=== PATIENT | female | born 1985 | race African-American/Black ===

== ENCOUNTER 2016-10-21 09:32 | Emergency (ER) | payer BC, OTHER ==
--- NOTE | ~2016-10-21 | CT71 ---
[facility] A Service of [facility] RADIOLOGY TEXT RESULTS PATIENT: MANE JOE LOCATION: [facility] : 89 UNIT #: [id number] AGE: [address]: Miriam Bolaños SEX: F ORDER DR: [id number] [facility] [address] [place], [place] [address] [id number] E MR#: [id number] Acc #: [id number] NAME: MANE JOE. : 1985 SEX: F STUDY DATE/TIME: 10/21/2016 10:23 UNIT: [facility] ROOM: STUDY DESCRIPTION: CT Head Wo Contrast Attending Physician: Miriam Bolaños P.A.-C. Ordering Physician: Miriam Bolaños P.A.-C. Primary Care Physician: No Primary Care Physician MEDICAL IMAGING REPORT This report is preliminary unless electronic signature is present EXAM CT head INDICATIONS Headache for 6 days. Diffuse head pain. Hypertension. TECHNIQUE CT head without contrast. This CT exam was performed with one or more of the following radiation dose reduction techniques: automatic control, adjustment of mA and/or kV according to patient size, and iterative reconstruction. COMPARISON CT head 04/18/2012. FINDINGS Axial noncontrast images were obtained from the skull base to the vertex. Ventricular size and configuration are normal. There is no evidence of acute infarct or hemorrhage. There are no extra-axial fluid collections. No mass lesion or mass effect is seen. There are no skull fractures. IMPRESSION Normal noncontrast head CT. Dictated by... Kyree Mills M.D. THIS IS AN ELECTRONICALLY VERIFIED REPORT Kyree Mills M.D. at 10/22/2016 10:42 AM BERYL/stan TD: 10/22/2016 01:28 [facility] A Service of [facility] RADIOLOGY TEXT RESULTS PATIENT: MANE JOE LOCATION: [facility] : 89 UNIT #: [id number] AGE: [address]: Miriam Bolaños SEX: F ORDER DR: JOB #: [id number] MEDICAL IMAGING REPORT Page 1 of 1 COPY
[~2016-10-21 09:32] MED LIST: ALBUTEROL17 GM INH; AMBIEN PO; ANTI-FUNGAL15 GM TP; ARIXTRA2.5 MG/0.1 SQ; BACTRIM DS TABL1 TA1 PO; BACTROBAN15 GM TOP; DECADRON PO; FAMOTIDINE PO; FLUCONAZOLE100 MG PO; KEFLEX PO; NORCO 5/325 TAB1 TAB PO; PAIN RELIEF325 M1 PO; PREDNISONE PO; PREDNISONE10 MG/DOSE PO; TYLENOL325 M1 PO; VANCOMYCIN; VIBRAMYCIN100 M1 PO; VICODIN 5/500 T1 TAB PO; ZOFRAN PO
[2016-10-21 10:48] LABS: BASOPHIL% 0.8 % (0-2.5); EOSINOPHIL# 0.3 X10e3 (0-0.7); EOSINOPHIL% 4.7 % (0.0-7.0); HEMATOCRIT 42.3 % (35.0-45.0); HEMOGLOBIN 14.3 gm/dL (12.0-16.0); LYMPHOCYTE# 2.7 X10e3 (1.0-3.5); LYMPHOCYTE% 47.5 % (17.0-45.0); MEAN CELL VOLUME 94.1 FL (83-96); MEAN CORPUSCULAR HEMOGLOBIN 31.8 PG (28-34); MEAN CORPUSCULAR HGB CONC 33.8 g/dL (30-36); MEAN PLATELET VOLUME 9.5 FL (6.5-11.5); MONOCYTE# 0.3 X10e3 (0-1.0); MONOCYTE% 5.7 % (3.0-12.0); NEUTROPHIL# 2.3 X10e3 (1.5-7.1); NEUTROPHIL% 41.3 % (40-75); PLATELET COUNT 248 X10e3 (140-420); RED BLOOD COUNT 4.49 X10e (3.90-5.30); RED CELL DISTRIBUTION WIDTH 14.1 % (11.0-15.5); WHITE BLOOD COUNT 5.7 X10e3 (4.0-10.5)
[2016-10-21 10:49] LABS: DIFF IND NO
[2016-10-21 11:16] LABS: CALCIUM SERUM 9.5 mg/dL (8.4-10.2); CREATININE SERUM 0.7 mg/dL (0.6-1.4); GLOM FILT RATE Estimated 135.7 mL/min (>60); POTASSIUM 4.3 mmol/L (3.5-5.1)
== END 2016-10-21 11:19 | disposition home or self-care (01) ==
LOC: CED 09:32
PROVIDERS: Physician Assistant
DX: G44.209 Tension-type headache, unspecified, not intractable (principal); I10 Essential (primary) hypertension; J45.909 Unspecified asthma, uncomplicated; F17.210 Nicotine dependence, cigarettes, uncomplicated
CPT/HCPCS: 36415; 70450; 80048; 84703; 85025; 96361; 96374; 96375; 99284; J1100; J1200; J1885; J2765